=== PATIENT | female | born 1965 | race Caucasian/White ===

== ENCOUNTER → 2018-12-07 | Outpatient (CLI) | payer BC ==
--- NOTE | 2018-12-07 17:04 | Diagnostic Imaging Report ---
PROCEDURE: US Thyroid. TECHNIQUE: Multiple real-time grayscale images were obtained of the thyroid in various projections. INDICATION: Neck tenderness and neck nodule. COMPARISON: No prior studies are available for comparison. FINDINGS: Right lobe of the thyroid measures 3.3 x 1.8 x 1.6 cm and the left lobe measures 3.9 x 1.5 x 1.7 cm. The isthmus is somewhat thickened at 6 mm. Both lobes of the thyroid are diffusely heterogeneous. No discrete thyroid mass is detected. Overall vascularity appears normal. IMPRESSION: Marked thyroid heterogeneity. No discrete thyroid mass is detected. Dictated by: Dictated on workstation # [id number]
== END ==
LOC: RAD 11:21
PROVIDERS: ATTEND Family Medicine
DX: E07.89 Other specified disorders of thyroid (principal)
CPT/HCPCS: 76536